=== PATIENT | female | born 1985 | race Hispanic/Latino ===

== ENCOUNTER 2018-11-10 10:38 | Emergency (ER) | payer MEDICAID, MEDICARE, SELFPAY ==
[2018-11-10] MEDS ORDERED: Lidocaine 1% PF 5 ML VIAL ONE (11:35)
[2018-11-10] MEDS ORDERED: Adacel (T-DAP) 0.5 ML SYRINGE ONE ×2 (11:37→11:47)
[2018-11-10] MEDS ORDERED: Lidocaine 1% (PF) 30 ML VIAL ONE (11:40)
== END 2018-11-10 12:10 | disposition home or self-care (01) ==
LOC: ERS 10:38
DX: S61.412A Laceration without foreign body of left hand, initial encounter (principal); F32.9 Major depressive disorder, single episode, unspecified; W26.0XXA Contact with knife, initial encounter
CPT/HCPCS: 90471; 90715; J2001

== ENCOUNTER 2020-02-12 08:42 | Emergency (ER) | payer BC, SELFPAY ==
[2020-02-12 09:14] LABS: Bilirubin Negative (Negative); Blood, Urine Negative (Negative); Clarity Clear (Clear); Glucose, Urine (Dipstick) Normal (Negative); Leukocyte Negative Leu/uL (Negative); Nitrite Negative (Negative); Protein, Urine (Dipstick) Negative (Neg-Trace); Urobilinogen Normal mg/dL (Less than 2)
[2020-02-12] MEDS ORDERED: Ondansetron PF 4 MG/2 ML Vial ONE (09:15)
[2020-02-12 09:20] LABS: #Basophils 0.1 thou/uL (0.0-0.2); #Eosinphils 0.1 thou/uL (0.0-0.7); #Lymphocytes 2.3 thou/uL (1.20-3.40); #Monocytes 0.6 thou/uL (0.11-0.59); #Neutrophils 4.8 thou/uL (1.40-6.50); %Basophils 1.4 % (0.0-1.0); %Lymphocytes 29.2 % (21.0-51.0); %Neutrophils 60.4 % (42.0-75.0); Hemoglobin 13.2 g/dL (12.0-16.0); Mean Corpuscular HGB CONC 32.5 g/dL (32.0-36.0); Mean Corpuscular Hemoglobin 28.8 pg (27.0-31.0); Mean Corpuscular Volume 88.6 fL (78.0-98.0); Platelet Count 233 thou/uL (130-400); RBC Distribution Width 12.6 % (11.5-14.5); Red Blood Cell (RBC) Count 4.59 mill/uL (4.20-5.40); White Blood Cell (WBC) Count 7.9 thou/uL (4.8-10.8)
[2020-02-12 09:36] LABS: BHCG - Serum Negative (NEGATIVE); Pregs Control Background? CLEAR/WHITE (CLR/WHITE); Pregs Control Bar Appear? YES (CONTROL BAR)
[2020-02-12 09:46] LABS: ALT (SGPT) 14 U/L (8-55); AST (SGOT) 15 U/L (5-34); Albumin 4.1 g/dL (3.5-5.0); Alkaline Phosphatase 86 U/L (40-110); Anion Gap 11 mmol/L (10-20); BUN (Urea Nitrogen) 9 mg/dL (7.0-18.7); Bilirubin, Total 0.4 mg/dL (0.2-1.2); Calc. Creatinine Clearance 0 mL/min (70-130); Calcium 8.6 mg/dL (7.8-10.44); Carbon Dioxide 24 mmol/L (22-29); Chloride 106 mmol/L (98-107); Estimated GFR-MDRD Greater than 90; Globulin 2.8 g/dL (2.4-3.5); Glucose 102 mg/dL (70-105); Lipase 22 U/L (8-78); Potassium 4.1 mmol/L (3.5-5.1); Protein, Total 6.9 g/dL (6.0-8.3); Sodium 137 mmol/L (136-145)
[2020-02-12] MEDS ORDERED: Famotidine/PF 20 mg/2ml Vial ONE (10:30)
[2020-02-12] MEDS ORDERED: methylPREDNISolone Sod Succ/PF 125 MG/2 ML VIAL ONE (10:30)
[2020-02-12] MEDS ORDERED: diphenhydrAMINE 50 MG/ML VIAL ONE ×2 (10:30→10:39)
[2020-02-12] MEDS ORDERED: Iopamidol 370 76% 100 ML VIAL ONE (11:19)
--- NOTE | 2020-02-12 11:52 | CT ---
EXAM: CT ABDOMEN AND PELVIS HISTORY: Umbilical abdominal pain. COMPARISON: None. Procedure: Multiple contiguous axial images were obtained and a CT of the abdomen and pelvis with IV contrast. C oronal reformats were performed. FINDINGS: Lower Chest: within normal limits. Vessels: Normal caliber aorta Heart: Normal heart size Abdomen: Portal vein:Patent Gallbladder: No calcified gallstones. Normal caliber wall. Liver: within normal limits. Pancreas: within normal limits. Spleen: within normal limits. Adrenals: within normal limits. Kidneys: Symmetric enhancement. No obstructive uropathy. Peritoneum: No ascites or free air, no fluid collection. Bowel: Limited evaluation due to the lack of oral contrast administration. No evidence of bowel obstr uction. Ileocecal junction is unremarkable. Normal caliber appendix. Scattered fecal material in a nondistended, nondilated colon. Mesentery and Retroperitoneum: No enlarged mesenteric or retroperitoneal lymph nodes. Abdominal Wall: Umbilical hernia containing mesenteric fat. The hernia defect is approximately 1 cm. There is induration of the herniated fat suggesting possible mesenteric ischemia or developing mesenteric infarct. Pelvis: Reproductive Organs: Intrauterine device is identified. Bilateral ovarian follicles are noted. Pelvis: No mass, lymphadenopathy, free air or free fluid. Bladder: within normal limits. Bones: within normal limits. IMPRESSION: 1. Umbilical hernia containing mesenteric fat. Heterogeneous attenuation the fat suggesting mesenteri c ischemia or infarct. General surgical consultation is recommended for possible May no decompression. 2. No evidence of hydronephrosis or obstructive uropathy 3. Normal caliber appendix. No bowel obstruction.
== END 2020-02-12 14:05 | disposition home or self-care (01) ==
LOC: ERS 08:42
DX: K42.9 Umbilical hernia without obstruction or gangrene (principal)
CPT/HCPCS: 36415; 74177; 80053; 81003; 83605; 83690; 84703; 85025; 96374; 96375; J1200; J2405; J2930; Q9967; S0028

== ENCOUNTER 2020-07-05 12:59 | Emergency (ER) | payer BC ==
[2020-07-05] MEDS ORDERED: Ketorolac Tromethamine 30 MG/ML VIAL ONE (14:43)
[2020-07-05] MEDS ORDERED: Acetaminophen 500 MG TAB ONE ×2 (14:43)
== END 2020-07-05 15:38 | disposition home or self-care (01) ==
LOC: ERS 12:59
DX: T26.92XA Corrosion of left eye and adnexa, part unspecified, initial encounter (principal); T26.91XA Corrosion of right eye and adnexa, part unspecified, initial encounter; I10 Essential (primary) hypertension
CPT/HCPCS: 96372; 99283; J1885

== ENCOUNTER 2021-01-07 12:56 | Observation (INO) | payer BC ==
[2021-01-07] MEDS ORDERED: Ondansetron PF 4 MG/2 ML Vial ONE ×2 (13:11→15:51)
[2021-01-07] MEDS ORDERED: Morphine 4 MG/ML VIAL ONE (13:11)
[2021-01-07] MEDS ORDERED: Fentanyl 100 MCG/2 ML VIAL ONE ×5 (13:13→19:25)
[2021-01-07 13:39] LABS: #Lymphocytes 1.5 thou/uL (1.20-3.40); #Monocytes 0.7 thou/uL (0.11-0.59); %Basophils 0.4 % (0.0-1.0); %Eosinophils 0.3 % (0.0-10.0); %Lymphocytes 12.4 % (21.0-51.0); %Monocytes 5.3 % (0.0-10.0); %Neutrophils 81.6 % (42.0-75.0); Hemoglobin 12.2 g/dL (12.0-16.0); Mean Corpuscular HGB CONC 32.8 g/dL (32.0-36.0); Mean Corpuscular Hemoglobin 27.8 pg (27.0-31.0); Mean Corpuscular Volume 84.6 fL (78.0-98.0); Mean Platelet Volume 9.1 fL (7.4-10.4); Platelet Count 265 thou/uL (130-400); RBC Distribution Width 12.9 % (11.5-14.5); White Blood Cell (WBC) Count 12.3 thou/uL (4.8-10.8)
[2021-01-07 14:02] LABS: ALT (SGPT) 14 U/L (8-55); AST (SGOT) 20 U/L (5-34); Albumin 4.4 g/dL (3.5-5.0); Alkaline Phosphatase 83 U/L (40-110); Anion Gap 18 mmol/L (10-20); BHCG - Serum Negative (NEGATIVE); BUN (Urea Nitrogen) 13 mg/dL (7.0-18.7); Bilirubin, Total 0.3 mg/dL (0.2-1.2); Calc. Creatinine Clearance 0 mL/min (70-130); Calcium 9.8 mg/dL (7.8-10.44); Carbon Dioxide 19 mmol/L (22-29); Chloride 105 mmol/L (98-107); Globulin 3.2 g/dL (2.4-3.5); Glucose 106 mg/dL (70-105); Potassium 3.8 mmol/L (3.5-5.1); Pregs Control Background? CLEAR/WHITE (CLR/WHITE); Pregs Control Bar Appear? YES (CONTROL BAR); Protein, Total 7.6 g/dL (6.0-8.3); Sodium 138 mmol/L (136-145)
[2021-01-07] MEDS ORDERED: Dextrose 50% Abboject 50 ML SYRINGE SLOW IVP PRN ×2 (14:11→19:09)
[2021-01-07] MEDS ORDERED: Dextrose 5% in Water 1,000 ML IV PRN ×2 (14:11→19:09)
[2021-01-07] MEDS ORDERED: Insulin Regular 300 UNITS/3 ML VIAL SC PRN (14:11)
[2021-01-07] MEDS ORDERED: Ondansetron PF 4 MG/2 ML Vial IVP PRN ×2 (14:11→19:09)
[2021-01-07] MEDS ORDERED: D5 1/2 NS w/20 mEq KCL 1,000 ML IV SCH (14:15)
[2021-01-07] MEDS ORDERED: traMADol HCl 50 MG TAB PO PRN ×3 (14:17→19:12)
[2021-01-07 14:20] LABS: INR-International Normal Ratio 1.1; PTT 25.9 sec (22.9-36.1); Prothrombin Time 14.1 sec (12.0-14.7)
[2021-01-07] MEDS ORDERED: Lidocaine 1% w/Epinephrine 1:100K 20 ML VIAL ONE (14:32)
[2021-01-07] MEDS ORDERED: Bupivacaine 0.25% HCL 30 ML VIAL ONE (14:32)
[2021-01-07] MEDS ORDERED: Acetaminophen 325 MG TAB PO SCH (15:00)
[2021-01-07] MEDS ORDERED: Sodium Chloride 0.9% 20 ML ONE (15:03)
[2021-01-07] MEDS ORDERED: Scopolamine 1.5 mg/72 hour Patch ONE (15:24)
[2021-01-07] MEDS ORDERED: Midazolam HCl 2 mg/2 ml Vial ONE (15:24)
[2021-01-07 15:28] LABS: SARS-CoV-2 NAA Rapid Test Not Detected (NotDetected)
[2021-01-07] MEDS ORDERED: Dexamethasone 20 MG/5 ML VIAL ONE (15:51)
[2021-01-07] MEDS ORDERED: Rocuronium Bromide 10 MG/ML (10ML VIAL) ONE (15:51)
[2021-01-07] MEDS ORDERED: PROPOFOL 200 MG/20 ML VIAL ONE (15:51)
[2021-01-07] MEDS ORDERED: Ketorolac Tromethamine 30 MG/ML VIAL ONE (15:51)
[2021-01-07] MEDS ORDERED: Glycopyrrolate 0.2 MG/ML 5 ML SYRINGE ONE (15:51)
[2021-01-07] MEDS ORDERED: Lidocaine 1% PF 5 ML VIAL ONE (15:51)
[2021-01-07] MEDS ORDERED: Ketorolac Tromethamine 30 MG/ML VIAL IVP SCH (18:00)
[2021-01-07] MEDS ORDERED: HYDROcodone/Acetaminophen 5/325 mg Tablet ONE (18:15)
[2021-01-07] MEDS ORDERED: HumaLOG 300 UNITS/3 ML VIAL SC PRN (19:09)
[2021-01-07] MEDS ORDERED: Fentanyl 100 MCG/2 ML VIAL SLOW IVP SCH (20:45)
[2021-01-07 21:37] LABS: Lactic Acid 2.2 mmol/L (0.5-2.2)
[2021-01-07] MEDS: Acetaminophen 500 MG TAB PO SCH (21:40)
[2021-01-07] MEDS: Famotidine/PF 20 mg/2ml Vial SLOW IVP SCH (21:41)
[2021-01-08] MEDS: Ketorolac Tromethamine 30 MG/ML VIAL IVP SCH ×3 (00:10→11:43)
[2021-01-08] MEDS: traMADol HCl 50 MG TAB PO PRN ×4 (00:13→20:07)
[2021-01-08] MEDS: Lactated Ringer's 1,000 ML IV SCH ×2 (00:13→08:59)
[2021-01-08 00:26] VITALS: BMI 29.1
[2021-01-08] MEDS: Acetaminophen 500 MG TAB PO SCH ×4 (03:17→20:07)
[2021-01-08 05:58] LABS: %Basophils 0.1 % (0.0-1.0); %Eosinophils 0.1 % (0.0-10.0); %Lymphocytes 8.9 % (21.0-51.0); %Monocytes 8.9 % (0.0-10.0); Hemoglobin 10.4 g/dL (12.0-16.0); Mean Corpuscular HGB CONC 33.1 g/dL (32.0-36.0); Mean Corpuscular Hemoglobin 28.1 pg (27.0-31.0); Mean Platelet Volume 9.4 fL (7.4-10.4); Platelet Count 241 thou/uL (130-400); Red Blood Cell (RBC) Count 3.71 mill/uL (4.20-5.40)
[2021-01-08 06:21] LABS: ALT (SGPT) 9 U/L (8-55); AST (SGOT) 14 U/L (5-34); Albumin 3.5 g/dL (3.5-5.0); Alkaline Phosphatase 66 U/L (40-110); Anion Gap 11 mmol/L (10-20); BUN (Urea Nitrogen) 7 mg/dL (7.0-18.7); Bilirubin, Total 0.4 mg/dL (0.2-1.2); Calc. Creatinine Clearance 147 mL/min (70-130); Calcium 8.5 mg/dL (7.8-10.44); Carbon Dioxide 22 mmol/L (22-29); Chloride 108 mmol/L (98-107); Globulin 2.6 g/dL (2.4-3.5); Glucose 120 mg/dL (70-105); Potassium 4.1 mmol/L (3.5-5.1); Protein, Total 6.1 g/dL (6.0-8.3); Sodium 137 mmol/L (136-145)
[2021-01-08] MEDS: Famotidine/PF 20 mg/2ml Vial SLOW IVP SCH (08:58)
[2021-01-08] MEDS: Ondansetron ODT 4 MG TAB SL SCH (18:37)
[2021-01-08] MEDS: Ibuprofen 200 MG TAB PO PRN (18:39)
[2021-01-09] MEDS: Ondansetron ODT 4 MG TAB SL SCH ×2 (00:20→05:59)
[2021-01-09] MEDS: Acetaminophen 500 MG TAB PO SCH ×2 (02:56→08:38)
[2021-01-09 08:10] VITALS: BP 105/65; TEMP 98.1
[2021-01-09] MEDS: Ibuprofen 200 MG TAB PO PRN (08:39)
== END 2021-01-09 10:47 | disposition home or self-care (01) ==
LOC: ERS 12:56 → SDC/OP 14:59 → SURG A 15:00
PROVIDERS: ADMIT Surgery; ATTEND Surgery
PROC: 0WUF0JZ Supplement Abdominal Wall with Synthetic Substitute, Open Approach (ICD-10-PCS; principal; 2021-01-07)
DX: K42.0 Umbilical hernia with obstruction, without gangrene (principal); Z88.1 Allergy status to other antibiotic agents; Z88.2 Allergy status to sulfonamides; Z88.8 Allergy status to other drugs, medicaments and biological substances; Z91.013 Allergy to seafood; Z91.041 Radiographic dye allergy status; Z20.822 Contact with and (suspected) exposure to COVID-19
CPT/HCPCS: 0240U; 36415; 36416; 80053; 83605; 84703; 85025; 85610; 85730; 88302; 96374; 96375; 96376; C1781; G0378; J0690; J1100; J1885; J2250; J2270; J2405; J2704; J3010; Q0162; S0020; S0028